=== PATIENT | male | born 1945 | race African-American/Black ===

== ENCOUNTER 2018-09-07 09:27 | Emergency (ER) | payer MEDICARE, BC ==
[~2018-09-07] VITALS: Ht 182.9 cm; Wt 110.0 kg
[~2018-09-07 09:27] MED LIST: LOSA50TA20
[2018-09-07] MEDS ORDERED: SODIUM CHLORIDE 0.9% 1,000 ML IV ONE (11:15)
[2018-09-07] MEDS ORDERED: ONDANSETRON HCL 4MG/2ML INJ IV STA (11:15)
[2018-09-07 11:31] LABS: CHLORIDE 94 mEq/L (98-107)
[2018-09-07 11:33] LABS: BASOPHILS % 0.6 % (0.0-2.0); EOSINOPHILS % 1.4 % (0.0-5.0); HEMATOCRIT. 45.2 % (42.0-52.0); HEMOGLOBIN. 14.9 g/dL (14.0-18.0); LYMPHOCYTES % 29.5 % (20.0-50.0); MEAN CORPUSCULAR HEMOGLOBIN 26.3 pg (28.0-32.0); MEAN PLATELET VOLUME 9.7 fl (7.4-10.4); MONOCYTES % 2.5 % (2.0-8.0); PLATELET 196 x1000/uL (130-400); RED BLOOD CELL COUNT 5.65 mill/uL (4.7-6.1); RED CELL DISTRIBUTION WIDTH 14.9 % (11.6-14.6)
[2018-09-07 11:36] LABS: INR 1.1; PROTHROMBIN TIME 11.4 sec (9.1-11.1)
[2018-09-07 11:50] LABS: CLARITY URINE CLEAR (CLEAR); COLOR URINE YELLOW (YELLOW); KETONES URINE TRACE (NEGATIVE); LEUKOCYTE ESTERASE URINE NEGATIVE (NEGATIVE); NITRITE URINE NEGATIVE (NEGATIVE); OCCULT BLOOD URINE NEGATIVE (NEGATIVE); PROTEIN URINE 1+ (NEGATIVE); SPECIFIC GRAVITY URINE 1.028 (1.005-1.030); UROBILINOGEN URINE 0.2 E.U./dL (0.2-1.0)
[2018-09-07 13:20] VITALS: BP 123/76
== END 2018-09-07 13:22 | disposition home or self-care (01) ==
LOC: ER 10:16
DX: K52.9 Noninfective gastroenteritis and colitis, unspecified (principal); Z85.46 Personal history of malignant neoplasm of prostate; Z85.118 Personal history of other malignant neoplasm of bronchus and lung
CPT/HCPCS: 36415; 71045; 80053; 81003; 83690; 85025; 85610; 93005; 96361; 96374; 99284; J2405; J7030

== ENCOUNTER 2018-11-20 16:11 | Inpatient (IN) | payer MEDICARE, BC ==
[~2018-11-20] VITALS: Ht 195.6 cm; Wt 103.2 kg
[2018-11-20] MEDS ORDERED: FAMOTIDINE 20MG/2ML VIAL IV STA (18:25)
[2018-11-20] MEDS ORDERED: SODIUM CHLORIDE 0.9% 1,000 ML IV ONE (18:25)
[2018-11-20] MEDS ORDERED: ONDANSETRON HCL 4MG/2ML INJ IV STA (18:25)
[2018-11-20 18:54] LABS: HEMATOCRIT. 29.5 % (42.0-52.0); HEMOGLOBIN. 9.8 g/dL (14.0-18.0); MEAN CORPUSCULAR HEMOGLOBIN 27.2 pg (28.0-32.0); MEAN CORPUSCULAR VOLUME 82.2 fL (80.0-94.0); MEAN PLATELET VOLUME 8.2 fl (7.4-10.4); PLATELET 186 x1000/uL (130-400); RED BLOOD CELL COUNT 3.59 mill/uL (4.7-6.1); RED CELL DISTRIBUTION WIDTH 18.2 % (11.6-14.6)
[2018-11-20 19:00] LABS: CHLORIDE 101 mEq/L (98-107)
[2018-11-20 20:41] LABS: ATYPICAL LYMPHOCYTES 2; PLATELET ESTIMATE NORMAL
[2018-11-20] MEDS ORDERED: ASPIRIN 325MG EC TABLET PO ONE (22:30)
[2018-11-21] VITALS (7 sets, daily range): BP systolic 118–143; BP diastolic 63–85
[2018-11-21] MEDS ORDERED: ASPI-1159 PO (01:11)
[2018-11-21] MEDS ORDERED: FAMO-135 PO (01:11)
[2018-11-21] MEDS: ASPIRIN 81MG TABLET PO SCH (09:49)
[2018-11-21] MEDS: FAMOTIDINE 20MG TABLET PO SCH ×2 (09:50→20:43)
[2018-11-21] MEDS: ENOXAPARIN 30MG/0.3ML SYR SUBCUT SCH ×2 (09:50→20:45)
[2018-11-21] MEDS: LOSARTAN POTASSIUM 50 MG TABLET PO SCH (09:50)
[2018-11-21 10:25] LABS: CLARITY URINE CLEAR (CLEAR); COLOR URINE YELLOW (YELLOW); KETONES URINE TRACE (NEGATIVE); LEUKOCYTE ESTERASE URINE NEGATIVE (NEGATIVE); NITRITE URINE NEGATIVE (NEGATIVE); OCCULT BLOOD URINE NEGATIVE (NEGATIVE); PROTEIN URINE NEGATIVE (NEGATIVE); SPECIFIC GRAVITY URINE 1.016 (1.005-1.030); UROBILINOGEN URINE 0.2 E.U./dL (0.2-1.0)
[2018-11-21] MEDS ORDERED: ONDANSETRON HCL 4MG/2ML INJ IV PRN (12:30)
[2018-11-21] MEDS ORDERED: ACETAMINOPHEN 325MG TABLET PO PRN (23:30)
[2018-11-22] VITALS: BP 144/74
[2018-11-22 04:00] VITALS: BP 132/70
[2018-11-22 05:41] VITALS: BP 132/70
[2018-11-22 06:36] LABS: HEMATOCRIT. 26.6 % (42.0-52.0); MEAN CORPUSCULAR HEMOGLOBIN 27.5 pg (28.0-32.0); MEAN CORPUSCULAR VOLUME 81.3 fL (80.0-94.0); MEAN PLATELET VOLUME 8.1 fl (7.4-10.4); PLATELET 167 x1000/uL (130-400); RED BLOOD CELL COUNT 3.27 mill/uL (4.7-6.1); RED CELL DISTRIBUTION WIDTH 18.8 % (11.6-14.6)
[2018-11-22 08:00] VITALS: BP_SYST 129; BP_SYST 145; BP_SYST 147; BP_DIAS 74; BP_DIAS 82; BP_DIAS 85
[2018-11-22] MEDS ORDERED: POTASSIUM CHLORIDE 20MEQ TABLET SR PO SCH (08:15)
[2018-11-22] MEDS: FAMOTIDINE 20MG TABLET PO SCH (08:33)
[2018-11-22] MEDS: LOSARTAN POTASSIUM 50 MG TABLET PO SCH (08:33)
[2018-11-22] MEDS: ASPIRIN 81MG TABLET PO SCH (08:33)
[2018-11-22] MEDS: ENOXAPARIN 30MG/0.3ML SYR SUBCUT SCH (08:34)
[2018-11-22 12:00] VITALS: BP 153/74
[2018-11-22 13:33] VITALS: BP 101/62
[2018-11-23 06:24] LABS: PLATELET ESTIMATE NORMAL
[2018-11-23] MEDS ORDERED: ENOXAPARIN 40MG/0.4ML SYR SUBCUT SCH (09:00)
== END 2018-11-22 14:15 | disposition home or self-care (01) | DRG 73 ==
LOC: ER 16:47 → ENRESERV 22:31 → 5WST 11-21 00:15
PROVIDERS: ADMIT Internal Medicine; ATTEND Internal Medicine
DX: G90.8 Other disorders of autonomic nervous system (principal); N17.0 Acute kidney failure with tubular necrosis; D64.9 Anemia, unspecified; E78.5 Hyperlipidemia, unspecified; C61 Malignant neoplasm of prostate; E86.0 Dehydration; I10 Essential (primary) hypertension; Z85.118 Personal history of other malignant neoplasm of bronchus and lung; Z87.891 Personal history of nicotine dependence; Z92.21 Personal history of antineoplastic chemotherapy
CPT/HCPCS: 36415; 71045; 80048; 80061; 83605; 84443; 84484; 93005; 93306; 93880; 96361; 96374; 96375; 97162; 99285; J1650; J2405; J3490; J7030